=== PATIENT | female | born 1965 | race Caucasian/White ===

== ENCOUNTER → 2017-02-02 | Day surgery (SDC) | payer OTHER ==
[~2017-02-02] MED LIST: ACTEMRA IV; ACTEMRA400 MG/20 INJ; ALBUTEROL0.63 MG/3 INH; ALLEGRA ALLERG180 MG PO; AMBIEN5 MG PO; ATORVASTATIN CA20 MG PO; DEXAMETHASONE SOD PHOS 10 MG/1 ML VIAL ONE; DICLOFENAC SODI75 MG PO; DILTIAZEM ER240 MG PO; FENTANYL CITRATE/PF 100MCG/2 ML INJ ONE; HYDROCHLOROTHIAZIDE PO; IOPAMIDOL 200 MG/ML 20 ML VIAL IT ONE; LIDOCAINE HCL 1% 30ML-PF VIAL ONE; LIDOCAINE HCL 2% LOCAL INJ 5 ML SDV VIAL INJ ONE; LISINOPRIL10 MG PO; MIDAZOLAM HCL 2 MG/2 ML VIAL ONE; OMEGA 3 KRILL; PROPOFOL IV EMULSION 10 MG/ML 20 ML VIAL ONE; QUINAPRIL PO; RITUX; TRAMADOL-ACETAMI1 EA PO; VICODIN ES TAB1 EACH PO; Z METHYLPREDNISOLO PO; Z.0.ALLEGRA180 MG PO; Z.0.BYSTOLIC5 MG PO; Z.0.CYMBALTA60 MG PO; Z.0.FOLIC ACID1 MG PO; Z.0.METHOTREXATE2.5 PO; Z.0.OMEPRAZOLE40 MG PO; Z.0.PLAQUENIL200 MG PO; Z.0.PRAVASTATIN SOD4 PO; Z.0.SINGULAIR10 MG PO; [UNRECOGNIZED DRUG - OTHER]; [UNRECOGNIZED DRUG - OTHER] IV; diltiazem PO
== END | disposition home or self-care (01) ==
LOC: OR 05:32
PROVIDERS: ATTEND Physical Medicine & Rehabilitation Pain Medicine
DX: M54.16 Radiculopathy, lumbar region (principal); M54.17 Radiculopathy, lumbosacral region; R93.7 Abnormal findings on diagnostic imaging of other parts of musculoskeletal system; Z98.1 Arthrodesis status; M06.9 Rheumatoid arthritis, unspecified; I10 Essential (primary) hypertension; K21.9 Gastro-esophageal reflux disease without esophagitis; R05 Cough; M27.8 Other specified diseases of jaws; F17.210 Nicotine dependence, cigarettes, uncomplicated
CPT/HCPCS: 64483; 64484; J1100; J2001 ×2; J2250; Q9966; 77003

== ENCOUNTER → 2017-03-02 | Day surgery (SDC) | payer BC, OTHER ==
[~2017-03-02] MED LIST changes: -LIDOCAINE HCL 2% LOCAL INJ 5 ML SDV VIAL INJ ONE
== END | disposition home or self-care (01) ==
LOC: OR 05:27
PROVIDERS: ATTEND Physical Medicine & Rehabilitation Pain Medicine
DX: M54.16 Radiculopathy, lumbar region (principal); M06.9 Rheumatoid arthritis, unspecified; I10 Essential (primary) hypertension; K21.9 Gastro-esophageal reflux disease without esophagitis; Z98.1 Arthrodesis status
CPT/HCPCS: 64483; 64484; J1100; J2001; J2250; Q9966; 77003

== ENCOUNTER → 2021-01-14 | Day surgery (SDC) | payer BC ==
[~2021-01-14] MED LIST changes: +BUPIVACAINE 0.25% 30ML SDV ONE; +CATAPRES-TTS 11 EACH PO; +CYMBALTA60 MG PO; -FENTANYL CITRATE/PF 100MCG/2 ML INJ ONE; +HYDROCODON-ACE1 EAC9; +LAMOTRIGINE100 MG PO; +NIFEDIPINE10 MG PO; +POVIDONE IODINE 0.05% 0.05 % ML PO ONE; +XELJANZ10 MG
[2021-01-14 07:15] VITALS: BP 106/60
== END | disposition home or self-care (01) ==
LOC: OR 06:16
PROVIDERS: ATTEND Physical Medicine & Rehabilitation Pain Medicine
DX: M54.16 Radiculopathy, lumbar region (principal); M48.061 Spinal stenosis, lumbar region without neurogenic claudication; M43.16 Spondylolisthesis, lumbar region; R93.7 Abnormal findings on diagnostic imaging of other parts of musculoskeletal system; Z98.1 Arthrodesis status; M06.9 Rheumatoid arthritis, unspecified; R56.9 Unspecified convulsions; I10 Essential (primary) hypertension; E78.5 Hyperlipidemia, unspecified; K21.9 Gastro-esophageal reflux disease without esophagitis; F17.210 Nicotine dependence, cigarettes, uncomplicated; Z88.6 Allergy status to analgesic agent; Z01.810 Encounter for preprocedural cardiovascular examination; Z01.812 Encounter for preprocedural laboratory examination; Z20.822 Contact with and (suspected) exposure to COVID-19; Z79.899 Other long term (current) drug therapy
CPT/HCPCS: 64483; 93005; J1100; J2001; J2250; J2704; Q9967; U0002; 77003